=== PATIENT | male | born 1980 | race Caucasian/White ===

== ENCOUNTER 2018-04-02 09:50 | Emergency (ER) | payer MEDICAID ==
[2018-04-02] MEDS ORDERED: IPRATROPIUM/ALBUTEROL 3 ML DEYVIAL IH ONE (10:15)
--- NOTE | 2018-04-02 10:21 | EDPHY ---
H & P Time Seen by Provider: 04/02/18 10:08 HPI/ROS: HPI Chest pain, shortness of breath, cough. 37-year-old male by private vehicle with his daughter. This patient reports that since last night he has had shortness of breath which is worse with exertion. He states that he has had a nonproductive cough as well as nasal discharge, congestion and rhinorrhea. He also reports that he has had chest pain which he describes as sharp and like a pole sticking through his chest 1st on the left side and this morning more on the right side lasting seconds at a time. Currently he states that he is just feeling short of breath and complaining of the cough and congestion. He has not had a fever. He states because of the cough he has had a sore throat as well. ROS: Constitutional: No fever, no chills. As above. Eyes: No discharge. No changes in vision. ENT: No sore throat. No nasal congestion or rhinorrhea. Respiratory: No cough. As above. Cardiac: As above, no palpitations. Gastrointestinal: No abdominal pain, no vomiting, no diarrhea. Genitourinary: No hematuria. No dysuria or increased frequency with urination. Musculoskeletal: No back pain. No neck pain. No myalgias or arthralgias. Skin: No rashes. Neurological: No headache. No focal weakness or altered sensation. Past medical history: Hernia surgery. Social history: Nonsmoker. Here with his daughter. No alcohol. Physical Exam: General Appearance: Alert, no distress. He is a big man. This patient is responding to questions appropriately and in full sentences. This patient appears well-hydrated and well-nourished. Eyes: Pupils equal and round no pallor or injection. No lid edema, erythema or injection. ENT, Mouth: Mucous membranes are moist. The pharyngeal tissues are unremarkable. No edema or swelling. No asymmetry suggestive of abscess. No erythema or exudates. No voice changes. No stridor on auscultation of his neck. No cervical, submandibular, submental lymphadenopathy. Respiratory: There are no retractions, lungs are mildly diminished bilaterally. No wheezing. No rhonchi. No tachypnea. Cardiovascular: Regular rate and rhythm. No murmur. Neurological: Motor sensory function is grossly intact. Cranial nerves are normal. Gait is normal. Skin: Warm and dry, no rashes. Musculoskeletal: Neck is supple and nontender. No pain on flexion of his neck. Extremities are symmetrical. All joints range without pain or impingement. Psychiatric: No agitation. No depression. Database: EKG: EKG time is 10:38 a.m.; EKG shows a narrow complex normal sinus rhythm with a ventricular rate of 81. The AK, QRS, QT intervals are within normal limits. Q- waves are noted in the inferior leads suggestive of an old inferior infarct. There are no ST-T wave changes indicative of acute ischemic or injury pattern. No evidence of right heart strain. Interpreted by me. Imaging: Chest x-ray PA and lateral; the cardiac mediastinal silhouette is unremarkable. No evidence of infiltrate or pneumothorax. Mild airway disease, bronchitis. No other acute cardiopulmonary disease process noted. Interpreted by me. Procedures: Emergency department course: Triage vital signs reviewed and are unremarkable. Patient's presentation is consistent with a bronchitis and viral upper respiratory infection. However, his complaint of chest pain although not typical in nature as noted above as well as shortness of breath are concerning. I will evaluate him for acute coronary syndrome as well as PE. He consents to workup. He will be given 1 albuterol/Atrovent nebulizer treatment. 12:00 p.m., the patient was re-evaluated. He is resting comfortably at this time. He feels better after 1 albuterol Atrovent nebulizer treatment. He has good air movement on repeat pulmonary exam. No tachypnea. He has been afebrile. Results of emergency department workup discussed with him. EKG findings as noted above discussed. He denies any chest pain and has had no pain while in the emergency department. He will be discharged home with treatment for bronchitis/upper respiratory infection. I will refer him to Cardiology, [facility], for re-evaluation and an echocardiogram. He is in agreement with this plan. Follow-up was thoroughly discussed with him. Return to emergency department precautions thoroughly reviewed. He was discharged in good condition. Differential Diagnosis: The differential diagnosis on this patient includes but is not limited to bronchitis, viral upper respiratory infection. Acute coronary syndrome, CHF, pulmonary embolism unlikely. This represents a partial list of diagnoses considered. These considerations are based on history, physical exam, past history, reassessment and diagnostic testing. Smoking Status: Former smoker Constitutional: Initial Vital Signs Temperature (C) 36.6 C 04/02/18 09:56 Heart Rate 75 04/02/18 09:56 Respiratory Rate 18 04/02/18 09:56 Blood Pressure 138/82 H 04/02/18 09:56 O2 Sat (%) 96 04/02/18 09:56 O2 Delivery Mode Room Air Allergies/Adverse Reactions: No Known Allergies Allergy (Unverified 04/02/18 09:56) Home Medications: Medication Instructions Recorded Codeine Phosphate/Guaifenesin 10 ml PO Q6 PRN #4 oz 10/26/15 [Guaiatussin AC Liquid] Medical Decision Making - Diagnostics Imaging Results: Imaging Impressions Chest X-Ray 04/02/18 10:15 Impression: Normal chest x-ray. - Data Points Laboratory Results: Laboratory Results 04/02/18 10:35 04/02/18 04/02/18 04/02/18 10:41 10:35 10:35 D-Dimer < 0.27 ug/mLFEU ug/mLFEU (0.00-0.50) Sodium 139 mEq/L mEq/L (135-145) Potassium 4.3 mEq/L mEq/L (3.3-5.0) Chloride 103 mEq/L mEq/L (97-110) Carbon Dioxide 27 mEq/l mEq/l (22-31) Anion Gap 9 mEq/L mEq/L (6-14) BUN 15 mg/dL mg/dL (7-23) Creatinine 1.0 mg/dL mg/dL (0.7-1.3) Estimated GFR > 60 Glucose 102 mg/dL H mg/dL (70-100) Calcium 9.8 mg/dL mg/dL (8.5-10.4) POC Troponin I 0.00 ng/mL ng/mL (0.00-0.08) Medications Given: Discontinued Medications Albuterol/Ipratropium (Duoneb) 3 ml IH EDNOW ONE Stop: 04/02/18 10:16 Last Admin: 04/02/18 10:28 Dose: 3 ml Point of Care Test Results: Chemistry 04/02/18 10:41 POC Troponin I 0.00 ng/mL ng/mL (0.00-0.08) Departure - Departure Disposition: Home, Routine, Self-Care Clinical Impression: Bronchitis, Upper respiratory infection Condition: Good Instructions: Upper Respiratory Infection (ED), Acute Bronchitis (ED) Additional Instructions: Read and follow provided instructions. Follow-up with your primary care physician in 1-2 days for re-evaluation regarding your upper respiratory infection. I believe this is viral. I do not think he require antibiotics at this time. As discussed, follow up with our cardiology group, [facility], Dr. Genet Long or 1 of her partners regarding your EKG. An echocardiogram should be obtained. Call their office for follow-up appointment time today. Explain this is for an emergency department follow-up. Ibuprofen dosin mg every 6 hours with meals for the next 3 days only. Take only as needed for pain. Consider [id number] cough and cold medications such as NyQuil for a decongestant and antihistamine. Take as directed. Return to the emergency department for worsening symptoms, chest pain, shortness of breath or other serious concerns. Referrals: Rene Castillo MD [Primary Care Provider] - As per Instructions
[2018-04-02 11:48] VITALS: BP 121/77
--- NOTE | 2018-04-02 14:19 | CPEKG ---
Test Reason : OPEN Blood Pressure : / mmHG Vent. Rate : 081 BPM Atrial Rate : 082 BPM P-R Int : 132 ms QRS Dur : 089 ms QT Int : 378 ms P-R-T Axes : 049 055 058 degrees QTc Int : 439 ms Sinus rhythm Inferior infarct, old Probable anterolateral infarct, old Confirmed by Hansel Diaz ([id number]) on 04/02/2018 2:18:26 PM Referred By: Confirmed By:Hansel Diaz
== END 2018-04-02 12:23 | disposition home or self-care (01) ==
DX: J40 Bronchitis, not specified as acute or chronic (principal); Z86.73 Personal history of transient ischemic attack (TIA), and cerebral infarction without residual deficits; Z87.891 Personal history of nicotine dependence
CPT/HCPCS: 84484-PO

== ENCOUNTER 2018-05-08 10:49 | Emergency (ER) | payer MEDICAID ==
[2018-05-08 10:56] VITALS: BP 134/85
[2018-05-08] MEDS ORDERED: IBUPROFEN 800 MG TAB PO ONE (11:30)
--- NOTE | 2018-05-08 11:34 | EDPHY ---
H & P Time Seen by Provider: 05/08/18 11:06 HPI/ROS: CLINICAL IMPRESSION: Plantar fasciitis of the right foot ASSESSMENT/PLAN: 37-year-old male presents to the emergency department with 1 year of intermittent right foot pain. Patient requesting x-ray which was negative for acute fracture and showed only a very small calcaneal spur. Distal neurovascular exam intact. No secondary signs of infection. I suspect the patient has plantar fasciitis. We discussed treatment remedies for this and stretches. I encouraged follow-up with physical therapy and Podiatry. Referrals given. Ibuprofen recommended. Warning signs return to ED outlined and discharge. DIFFERENTIAL DX: Differential diagnosis includes but not limited to plantar fasciitis, acute fracture, ligamentous strain, heel spur ED COURSE: See imaging results below. Preliminary review of imaging shows no acute fracture CHIEF COMPLAINT: Right foot pain HPI: 37-year-old male presents to the emergency department with intermittent right foot pain along the sole of the foot for the last year. Patient states pain began shortly after he jumped off of something. He never had this x-ray. He is requesting an x-ray today. Pain is worse 1st thing in the morning upon standing. He has not taken anything for the pain except for an occasional ibuprofen. No swelling, redness or warmth to the foot no loss of sensation. Pain extends into the heel and slightly up the Achilles tendon. Patient walks a lot for his job. He reports no other significant medical history PAST MEDICAL HISTORY: None reported Pertinent Past Surgical History: Hernia repair Social History: Former smoker, stands frequently for work REVIEW OF SYSTEMS: All other systems negative Constitutional: No fever, no chills Musculoskeletal: No deformity, + joint pain Skin: No rashes, color change or open wounds. Neurological: No sensory loss or weakness. PHYSICAL EXAM: General Appearance: Alert, oriented, appropriate for age, cooperative, NAD, well hydrated, non-toxic appearing, VSS, no hypoxia. Neurological: Alert and oriented x 3, normal sensation and strength of extremities Skin: Warm, dry, no rashes, no nodules on palpation. Musculoskeletal: Pain to palpation along the plantar fascia of the right foot extending into the heel. No erythema, warmth, swelling. Distal neurovascular exam intact. MEDICAL DECISION MAKING: Patient was seen independently.Secondary supervising physician at time of evaluation was Dr. Silva. Diagnosis: Plantar fasciitis of the right foot. New, requires workup Summary: See assessment and plan for summary of ED visit Independent visualization of images, tracing, or specimens yes. Patient Progress stable. Smoking Status: Former smoker Constitutional: Initial Vital Signs Temperature (C) 36.3 C 05/08/18 10:53 Heart Rate 103 H 05/08/18 10:53 Respiratory Rate 17 05/08/18 10:53 Blood Pressure 134/85 H 05/08/18 10:53 O2 Sat (%) 97 05/08/18 10:53 O2 Delivery Mode Room Air Allergies/Adverse Reactions: No Known Allergies Allergy (Verified 05/08/18 10:52) Home Medications: Medication Instructions Recorded NK [No Known Home Meds] 05/08/18 MDM/Departure - MDM Imaging Results: Imaging Impressions Foot X-Ray 05/08/18 11:30 Impression: 1. No acute osseous abnormality. 2. Tiny plantar calcaneal spur. Imaging: I viewed and interpreted images myself Medications Given: Discontinued Medications Ibuprofen (Motrin) 800 mg PO EDNOW ONE Stop: 05/08/18 11:31 Last Admin: 05/08/18 11:32 Dose: 800 mg - Depart Disposition: Home, Routine, Self-Care Clinical Impression: Plantar fasciitis of right foot Condition: Good Instructions: Plantar Fasciitis (ED) Additional Instructions: DISCHARGE INSTRUCTIONS FROM YOUR DOCTOR Thank you for visiting our emergency department today. Please keep in mind that discharge from the emergency department does not mean that there is nothing wrong - it simply means that we have not identified an emergency condition that requires further evaluation or treatment in the hospital. You should always plan to follow up with primary care for re-evaluation of your condition in the next 2-3 days. If you have been referred to a specialist, please call as soon as possible (today or tomorrow) to schedule your follow up appointment at the appropriate time. [X-rays of your foot show no evidence of acute fracture or bony abnormality. We suspect you are suffering from plantar fasciitis. Please stretch the foot frequently, there are good resources online to show how to stretch the plantar fascia. A referral to a teachers' aide was given. Please also use good footwear with adequate arch supports. Use ibuprofen 600 mg 3 times daily with food and a large glass of water for pain control. Do not take this for more than 1 week. Return to the emergency department for severe pain, redness or warmth, significant swelling to the foot, inability to ambulate, high fevers or any other concern. ] People present with illnesses and injuries in different ways, and it is always possible that we have missed something. You may always return for re-evaluation if symptoms worsen or if they are not improving or if you develop new/different symptoms. Again, thank you for choosing our emergency department. We hope that you feel better. Referrals: Rene Castillo MD [Primary Care Provider] - As per Instructions Thomas Hernandez DPM [Doctor of Podiatric Medicine] - As per Instructions
== END 2018-05-08 11:45 | disposition home or self-care (01) ==
DX: M72.2 Plantar fascial fibromatosis (principal); M77.31 Calcaneal spur, right foot

== ENCOUNTER 2018-08-03 11:51 | Day surgery (SDC) | payer MEDICAID ==
[2018-08-03] MEDS ORDERED: BENZOCAINE UNIT DOSE SPRAY HURRICAINE MM ONE (11:55)
[2018-08-03] MEDS ORDERED: MIDAZOLAM 2 MG/2 ML VIAL IVP ONE (11:55)
[2018-08-03] MEDS ORDERED: fentaNYL 100 MCG/2 ML INJ IVP ONE (11:55)
[2018-08-03] MEDS ORDERED: NS 500 ML IV ONE (11:55)
--- NOTE | 2018-08-03 12:56 | PDANEPAE ---
ANE History of Present Illness MVP here for JACKSON ANE Past Medical History - Cardiovascular History Hx Hypertension: No Hx Arrhythmias: No Hx Chest Pain: Yes Hx Coronary Artery / Peripheral Vascular Disease: No Hx CHF / Valvular Disease: Yes Hx Palpitations: No Cardiovascular History Comment: Had an episode of feeling bad and ,ild chest pain and was evaluated in the ER. Found a q wave on EKG and was referred on to cardiology. He had a stress that revealed some possible ischemia and then had an echo which revealed calcifications on the mitral valve and regurge. He is here today for further eval of valvular disease with JACKSON - Pulmonary History Hx COPD: No Hx Asthma/Reactive Airway Disease: No Hx Recent Upper Respiratory Infection: No Hx Oxygen in Use at Home: No Hx Sleep Apnea: Yes - Endocrine History Hx Diabetes: No Hypothyroid: No Hyperthyroid: No - Renal History Hx Renal Disorders: No - Liver History Hx Hepatic Disorders: No - Neurological & Psychiatric Hx Hx Neurological and Psychiatric Disorders: No - Congenital Disorder History Hx Congenital Disorders: No - GI History GERD: no Hx Gastrointestinal Disorders: No - Surgical History Prior Surgeries: inguinal hernia repair ANE Review of Systems Review of Systems: ANE Patient History - Allergies Allergies/Adverse Reactions: No Known Allergies Allergy (Verified 05/08/18 10:52) - Home Medications Home Medications: NK [No Known Home Meds] 05/08/18 [Last Taken Unknown] - Smoking Hx Smoking Status: Former smoker ANE Labs/Vital Signs - Vital Signs Height: 177.8 cm Weight: 120.202 kg ANE Physical Exam - Airway Neck exam: FROM Mallampati Score: Class 2 Mouth exam: normal dental/mouth exam - Pulmonary Pulmonary: no respiratory distress, no rales or rhonchi - Cardiovascular Cardiovascular: regular rate and rhythym, no murmur, rub, or gallop - ASA Status ASA Status: II (copius facial hair)
[2018-08-03] MEDS ORDERED: PROPOFOL/EMULSION 500 MG/50 ML BOTTLE IV ONE (13:25)
[2018-08-03] MEDS ORDERED: ATROPINE SULFATE 1 MG/10 ML SYR ONE (13:32)
--- NOTE | 2018-08-03 13:37 | PDHPUP ---
History & Physical Update H&P update statement: This history and physical update is based on an assessment of the patient which was completed after admission or registration (within 24 hours), but prior to the surgery/procedure.37 year old with significant Mitral Annular calcification noted on TTE. Here today for further evaluation of mitral valve. H&P update: H&P reviewed & patient examined, no change in patient's condition since H&P completed
[2018-08-03] MEDS ORDERED: PROPOFOL 200 MG/20 ML VIAL ONE (13:52)
[2018-08-03] MEDS ORDERED: MEPERIDINE 25 MG/0.5 ML AMP IVP PRN (14:05)
[2018-08-03] MEDS ORDERED: DEXAMETHASONE 4 MG/ML VIAL IVP PRN (14:05)
[2018-08-03] MEDS ORDERED: LR 500 ML IV PRN (14:05)
[2018-08-03] MEDS ORDERED: ONDANSETRON 4 MG/2 ML VIAL IVP PRN (14:05)
[2018-08-03] MEDS ORDERED: HYDROCODONE/APAP 5/325 TAB PO PRN (14:05)
[2018-08-03] MEDS ORDERED: NALOXONE HCL 0.4 MG/ML INJ IVP PRN (14:05)
--- NOTE | 2018-08-03 14:06 | POSTANESTH ---
Post Anesthetic Evaluation Cardiovascular Status: Normal, Stable Respiratory Status: Normal, Stable Level of Consciousness/Mental Status: Can Participate in Eval, Moderately Sleepy Pain Control: Adequate, Prn Tx Ordered Nausea/Vomiting Control: Adequate, Prn Tx Ordered Complications Possibly Related to Anesthesia: None Noted
--- NOTE | 2018-08-03 14:19 | CPR ---
[f rep st] NONINVASIVE CARDIAC PROCEDURE REPORT DATE OF PROCEDURE: 08/03/2018 PROCEDURE PERFORMED: Transesophageal echocardiogram. INDICATION FOR PROCEDURE: Evaluation of mitral valve in the setting of severe mitral annular calcifi cation noted on transthoracic echocardiogram. PROCEDURE: After informed consent was obtained for anesthesia as well as transesophageal echocardiog saleem, patient was sedated with propofol. Once appropriate level of sedation was achieved, JACKSON probe w as passed without incident. JACKSON probe was used to take images of the mitral valve every 30 degrees i n 180-degree arc. Left ventricular function was assessed. Please see complete echocardiogram for fu ll details. The patient had increased secretions and dropped in oxygen saturation. In limiting sedation with pro pofol, during which the patient became agitated, he had developed increased secretions. The bite blo ck became dislodged, and decision was made at that point to abort further attempts to continue the st udy. At this time, patient is awakened from propofol sedation with Anesthesia. PLAN: 1. The patient will be discharged home once he has returned to baseline. 2. Preliminary findings demonstrate mild mitral annular calcification with normally functioning mitr al valve. Normal left ventricular function. /[id number]/MODL
--- NOTE | 2018-08-03 17:08 | ECHO ---
[email or web address] [place] [phone] Main: [phone] Fax: Transesophageal Echocardiography Name: CARLOS FARRAR MR#: [id number] Study Date: 08/03/2018 Study Time: 01:27 PM Date of : 1980 Age: 37 year(s) Height: ( ) Weight: ( ) BSA: Gender: Male Examination: JACKSON Indication: Eval Mitral Valve Annulus Image Quality: Contrast: Requested by: Thomas Suggs Heart Rate: Rhythm: BP: / Procedure Staff Elementary Education Tutor: Terrence Wheeler RDCS Reading Physician: Thomas Suggs MD Requesting Provider: JACKSON Exam Details Measurements: Chambers Valvular Assessment AV/MV Valvular Assessment TV/PV Normal Normal Normal Name Value Range Name Value Range Name Value Range Additional Measurements: Findings: Left Ventricle: Normal global systolic LV function. No regional wall motion abnormality. Left Atrial Appendage: No thrombus in left appendage. Mitral Valve: There is mild mitral valve annular calcification, there is no evidence of a mass in the mitral annulus.. Pericardium: No pericardial effusion. l1n (No Signature Object) Patient: CARLOS FARRAR Study Date: 08/03/2018 Page 1 of 1 01:27 PM [id number]
== END 2018-08-03 16:18 | disposition home or self-care (01) ==
LOC: FCATH 11:51
PROVIDERS: ATTEND Internal Medicine Cardiovascular Disease
PROC: B245ZZ4 Ultrasonography of Left Heart, Transesophageal (ICD-10-PCS; principal; 2018-08-03)
DX: I34.8 Other nonrheumatic mitral valve disorders (principal); E66.9 Obesity, unspecified; Z68.38 Body mass index [BMI] 38.0-38.9, adult; Z87.891 Personal history of nicotine dependence; Z88.0 Allergy status to penicillin
CPT/HCPCS: J0461; J2704; J3010

== ENCOUNTER 2018-12-05 15:57 | Observation (INO) | payer MEDICAID | END 2018-12-06 21:09 | disposition home or self-care (01) | LOC: F2W 18:30 ==

== ENCOUNTER 2018-12-06 23:24 | Emergency (ER) | payer MEDICAID | END 2018-12-07 02:37 | disposition home or self-care (01) ==